=== PATIENT | female | born 1990 | race Caucasian/White ===

== ENCOUNTER 2017-05-30 15:01 | Emergency (ER) | payer OTHER ==
[2017-05-30 15:22] VITALS: RESP 16; TEMP 98.1
[2017-05-30] MEDS ORDERED: CEPHALEXIN 500 MG CAP PO ONE (16:37)
--- NOTE | 2017-05-30 17:36 | EDPHY ---
H & P Stated Complaint: inj ? open fx to l 5th toe Time Seen by Provider: 05/30/17 15:52 HPI/ROS: Chief complaint: Left 5th toe injury History of present illness: 26-year-old female who presents to the emergency department for left 5th toe injury. Patient states she struck her toe against a water slide while going down the slide. She has noted a cut. She has seen bone sticking out of it. There is associated pain and bleeding, bleeding has been controlled. She cannot move it. No report of abnormal coolness or paresthesias in the toe. No other injuries are reported. - Personal History LMP (Females 10-55): Extended Cycle BCP/Inj Current Tetanus/Diphtheria Vaccine: Yes - Medical/Surgical History Hx Asthma: No Hx Chronic Respiratory Disease: No Hx Diabetes: No Hx Cardiac Disease: No Hx Renal Disease: No Hx Cirrhosis: No Hx Alcoholism: No Hx HIV/AIDS: No Hx Splenectomy or Spleen Trauma: No Other PMH: denies - Social History Smoking Status: Current every day smoker - Physical Exam Exam: General: Alert, nontoxic Skin: 1 cm laceration to the extensor surface of the left 5th toe. Musculoskeletal: Patient has minimal flexion and extension left 5th toe. On exploration of the wound I am able to visualize the extensor tendon mechanism lateral to the laceration. It is difficult to visualize but does appear grossly intact. She is moving other digits well. The foot and ankle are nontender with good range of motion in the ankle and no tenderness over the Achilles. Vascular: Capillary refill brisk in the left 5th toe. DP and PT pulses 2+. Neurologic: Sensation intact in the left 5th toe using light touch. Constitutional: Initial Vital Signs Temperature (C) 36.7 C 05/30/17 15:20 Heart Rate 83 05/30/17 15:20 Respiratory Rate 16 05/30/17 15:20 Blood Pressure 117/71 05/30/17 15:20 O2 Sat (%) 97 05/30/17 15:20 O2 Delivery Mode Room Air Allergies/Adverse Reactions: No Known Allergies Allergy (Verified 05/30/17 15:19) Home Medications: Medication Instructions Recorded Control 08/10/11 Cephalexin [Keflex] 500 mg PO QID 7 Days 05/30/17 Medical Decision Making - Diagnostics Imaging Results: Imaging Impressions Foot X-Ray 05/30/17 15:23 Impression: Fracture dislocation fifth PIP joint. Toe X-Ray 05/30/17 17:03 Impression: Near-anatomic alignment of a comminuted intra-articular fracture involving proximal phalanx. Imaging: I viewed and interpreted images myself Procedures: Procedure: Fracture/Dislocation reduction. The fracture/dislocation of the left 5th toe was reduced using traction technique without complications. Post reduction the patient's neurovascular exam is normal. Post reduction x-ray demonstrates reduction of the joint to the anatomic position. The procedure was performed by myself. Procedure: Splint placement. A roberto-tape splint with postop shoe was applied. After application of the splint I returned and re-examined the patient. The splint was adequately immobilizing the joint and distal to the splint the patient's circulation and sensation was intact. ED Course/Re-evaluation: Patient seen under the supervision of my primary supervising physician Dr. Helena Tavarez. Patient presents to the emergency department with an injury to her left 5th toe. She appears to have an open fracture dislocation of the left 5th toe. She does appear neurovascularly intact. I have consulted with Orthopedics, physician physical therapy assistant instructor Jed for Dr. Barone. They are comfortable with management of the injury in the emergency room by the staff here with the wound being anesthetized and then copiously irrigated, the fracture dislocation being reduced and the wound again copiously irrigated, it then sutured shut. It is then splinted. Post reduction films show improved alignment. Patient is started on Keflex. She will be discharged home on a course of Keflex. Home care is discussed including wound care and pain management. She is asked to follow up with Orthopedics next week for recheck and is provided referral information. Return precautions are given. The patient voiced understanding and agreement with plan. Differential Diagnosis: Included but not limited to contusion, sprain or strain, bony fracture, joint dislocation - Data Points Medications Given: Discontinued Medications Cephalexin HCl (Keflex) 500 mg PO EDNOW ONE PRN Reason: Protocol Stop: 05/30/17 16:38 Last Admin: 05/30/17 17:00 Dose: 500 mg Departure - Departure Disposition: Home, Routine, Self-Care Clinical Impression: Toe fracture, left Qualifiers: Encounter type: initial encounter Toe: lesser toe Fracture type: open Phalanx: proximal Fracture alignment: displaced Qualified Code(s): S92.512B - Displaced fracture of proximal phalanx of left lesser toe(s), initial encounter for open fracture Toe dislocation Qualifiers: Encounter type: initial encounter Laterality: left Qualified Code(s): S93.105A - Unspecified dislocation of left toe(s), initial encounter Condition: Good Instructions: Cephalexin (By mouth), Care For Your Stitches (ED), Laceration ( ED), Toe Fracture (ED), Acute Wounds (ED) Additional Instructions: Please follow-up with orthopedics on next Thursday or for continued evaluation and care Take all antibiotics as prescribed until finished even feeling better Keep wound clean with soap and water and splinted by roberto taping and using the splint shoe If symptoms worsen or new symptoms develop return to the emergency room for recheck Referrals: Donnie Ho MD [Primary Care Provider] - As per Instructions Yousif Barone MD [Medical Doctor] - As per Instructions Prescriptions: Cephalexin [Keflex] 500 mg PO QID 7 Days
[2017-05-30] MEDS ORDERED: CEPHALEXIN 500MG PREPACK#4 BTL TAKEHOME ONE (17:49)
[2017-05-30 17:58] VITALS: BP 111/67; PULSE 87; O2SAT 99
== END 2017-05-30 17:57 | disposition home or self-care (01) ==
PROC: 0QSRXZZ Reposition Left Toe Phalanx, External Approach (ICD-10-PCS; principal; 2017-05-30)
DX: S92.512A Displaced fracture of proximal phalanx of left lesser toe(s), initial encounter for closed fracture (principal); F17.200 Nicotine dependence, unspecified, uncomplicated; W22.8XXA Striking against or struck by other objects, initial encounter